=== PATIENT | female | born 1965 | race African-American/Black ===

== ENCOUNTER 2016-10-29 10:23 | Emergency (ER) | payer SELFPAY ==
[2016-10-29] MEDS ORDERED: Ibuprofen 800 MG TAB ONE (11:33)
[2016-10-29] MEDS ORDERED: Penicillin V Potassium 250 MG TAB ONE (11:33)
== END 2016-10-29 11:35 | disposition home or self-care (01) ==
LOC: MADERS 10:23
DX: K02.9 Dental caries, unspecified (principal); K13.79 Other lesions of oral mucosa; F17.210 Nicotine dependence, cigarettes, uncomplicated
CPT/HCPCS: 99283

== ENCOUNTER 2017-01-29 14:06 | Emergency (ER) | payer SELFPAY ==
[2017-01-29] MEDS ORDERED: Sulfameth/Trimethoprim DS 800-160mg TAB ONE (14:24)
== END 2017-01-29 14:30 | disposition home or self-care (01) ==
LOC: MADERS 14:06
DX: L03.313 Cellulitis of chest wall (principal); B35.6 Tinea cruris; I10 Essential (primary) hypertension; F17.210 Nicotine dependence, cigarettes, uncomplicated
CPT/HCPCS: 99282

== ENCOUNTER 2017-01-30 10:42 | Emergency (ER) | payer SELFPAY | END 2017-01-30 11:10 | disposition home or self-care (01) | LOC: MADERS 10:42 | DX: L30.9 Dermatitis, unspecified (principal); I10 Essential (primary) hypertension; F17.210 Nicotine dependence, cigarettes, uncomplicated | CPT/HCPCS: 99282 ==

== ENCOUNTER 2017-08-04 09:17 | Emergency (ER) | payer SELFPAY ==
--- NOTE | 2017-08-04 10:10 | RAD ---
RIGHT ANKLE 3 VIEWS: HISTORY: Trauma, right ankle pain. FINDINGS: The ankle mortise is maintained. No acute fracture or dislocation is seen. POS: [facility]
--- NOTE | 2017-08-04 10:10 | RAD ---
RIGHT FOOT 3 VIEWS: HISTORY: Trauma, right foot pain. FINDINGS: No acute fracture or dislocation is identified. POS: [facility]
== END 2017-08-04 10:25 | disposition home or self-care (01) ==
LOC: MADERS 09:17
DX: S93.411A Sprain of calcaneofibular ligament of right ankle, initial encounter (principal); F17.210 Nicotine dependence, cigarettes, uncomplicated; I10 Essential (primary) hypertension; W17.2XXA Fall into hole, initial encounter

== ENCOUNTER 2017-11-05 03:02 | Emergency (ER) | payer SELFPAY ==
[2017-11-05] MEDS ORDERED: Aspirin 325 MG TAB ONE (03:35)
[2017-11-05 03:51] LABS: #Lymphocytes 2.3 thou/uL (1.20-3.40); #Neutrophils 2.6 thou/uL (1.40-6.50); %Basophils 2.5 % (0.0-1.0); %Lymphocytes 38.6 % (21.0-51.0); %Monocytes 11.9 % (0.0-10.0); Hemoglobin 13.5 g/dL (12.0-16.0); Mean Corpuscular HGB CONC 31.6 g/dL (32.0-36.0); Mean Corpuscular Hemoglobin 29.4 pg (27.0-31.0); Mean Corpuscular Volume 92.9 fl (81.0-99.0); Platelet Count 237 thou/uL (130-400); RBC Distribution Width 14.2 % (11.5-14.5); Red Blood Cell (RBC) Count 4.52 mill/uL (4.20-5.40)
[2017-11-05 04:03] LABS: Alcohol 21 mg/dL (Less than 10); Anion Gap 13 mmol/L (10-20); BUN (Urea Nitrogen) 11 mg/dL (9.8-20.1); Calc. Creatinine Clearance 0 mL/min (70-130); Calcium 8.7 mg/dL (7.8-10.44); Carbon Dioxide 22 mmol/L (22-29); Chloride 112 mmol/L (98-107); Estimated GFR-MDRD 89; Glucose 109 mg/dL (70-105); Potassium 3.9 mmol/L (3.5-5.1); Sodium 143 mmol/L (136-145)
[2017-11-05 04:04] LABS: Acetaminophen Less than 6.0 mcg/mL (10.0-30.0); Alcohol 21 mg/dL (Less than 10); Salicylate Less than 8.0 mg/dL (15.0-30.0)
[2017-11-05 04:06] LABS: Troponin I Less than 0.010 ng/mL (< 0.028)
[2017-11-05] MEDS ORDERED: Lidocaine Viscous Sol 2% 15 ml UD Cup ONE (04:44)
[2017-11-05] MEDS ORDERED: Mag-Al Plus 1200 MG/1200 MG/120 MG/30 ML UDCUP ONE (04:44)
--- NOTE | 2017-11-05 08:25 | RAD ---
PORTABLE CHEST ONE VIEW: Date: 11-05-17 Time: 3:20 a.m. History: Chest pain. FINDINGS: The heart size is normal. The lungs are expanded without focal areas of consolidation, pneumothorax, or pleural effusions. IMPRESSION: No radiographic evidence of acute cardiopulmonary process. POS: [facility]
== END 2017-11-05 04:40 | disposition home or self-care (01) ==
LOC: MADERS 03:02
DX: K21.0 Gastro-esophageal reflux disease with esophagitis (principal); I10 Essential (primary) hypertension; F17.210 Nicotine dependence, cigarettes, uncomplicated
CPT/HCPCS: 36415; 71045; 80048; 80307; 82553; 83880; 84484; 85025; 93005; 94760

== ENCOUNTER 2018-10-01 14:53 | Emergency (ER) | payer SELFPAY | END 2018-10-01 15:35 | disposition home or self-care (01) | LOC: MADERS 14:53 | DX: H69.90 Unspecified Eustachian tube disorder, unspecified ear (principal); J06.9 Acute upper respiratory infection, unspecified; H61.23 Impacted cerumen, bilateral; I10 Essential (primary) hypertension; F17.210 Nicotine dependence, cigarettes, uncomplicated | CPT/HCPCS: 99281 ==

== ENCOUNTER 2019-10-09 11:45 | Emergency (ER) | payer SELFPAY ==
--- NOTE | 2019-10-09 12:25 | RAD ---
PORTABLE CHEST 1 VIEW: DATE: 10/09/2019. TIME: 12:05 PM. HISTORY: Shortness of breath. FINDINGS: Comparison is made with the exam of 11/05/2017. The heart size is normal. No focal areas of consolidation, pneumothoraces, or pleural effusions are seen. IMPRESSION: No acute process. POS: [facility]
[2019-10-09 12:40] LABS: #Basophils 0.2 thou/uL (0.0-0.2); #Lymphocytes 0.8 thou/uL (1.20-3.40); #Monocytes 0.9 thou/uL (0.11-0.59); #Neutrophils 5.7 thou/uL (1.40-6.50); %Basophils 2.1 % (0.0-1.0); %Eosinophils 0.4 % (0.0-10.0); %Lymphocytes 10.4 % (21.0-51.0); %Monocytes 11.8 % (0.0-10.0); %Neutrophils 75.3 % (42.0-75.0); Mean Corpuscular HGB CONC 30.2 g/dL (32.0-36.0); Mean Corpuscular Hemoglobin 27.5 pg (27.0-31.0); Mean Corpuscular Volume 91.3 fL (78.0-98.0); Mean Platelet Volume 9.2 fL (7.4-10.4); Platelet Count 197 thou/uL (130-400); RBC Distribution Width 13.6 % (11.5-14.5); Red Blood Cell (RBC) Count 5.44 mill/uL (4.20-5.40); White Blood Cell (WBC) Count 7.6 thou/uL (4.8-10.8)
[2019-10-09 12:54] LABS: ALT (SGPT) 60 U/L (8-55); AST (SGOT) 60 U/L (5-34); Alkaline Phosphatase 134 U/L (40-110); Anion Gap 15 mmol/L (10-20); BUN (Urea Nitrogen) 7 mg/dL (9.8-20.1); Bilirubin, Total 0.6 mg/dL (0.2-1.2); Calc. Creatinine Clearance 0 mL/min (70-130); Calcium 9.5 mg/dL (7.8-10.44); Carbon Dioxide 22 mmol/L (22-29); Chloride 106 mmol/L (98-107); Estimated GFR-MDRD 76; Globulin 3.6 g/dL (2.4-3.5); Glucose 108 mg/dL (70-105); Potassium 3.6 mmol/L (3.5-5.1); Protein, Total 7.6 g/dL (6.0-8.3); Sodium 139 mmol/L (136-145)
[2019-10-09 12:56] LABS: Magnesium 1.9 mg/dL (1.6-2.6)
--- NOTE | 2019-10-09 13:56 | CT ---
EXAM: CT pulmonary angiogram with IV contrast and 3-D MIP reconstructions PROVIDED CLINICAL HISTORY: Cough and shortness of breath COMPARISON: None FINDINGS: There is no evidence for central or segmental pulmonary embolus. The lungs are free of significant opacity. No pleural fluid or pneumothorax apparent. No evidence for thoracic lymph node enlargement. The airway appears patent and of normal caliber. The visualized portions of the upper abdomen demonstrate no acute findings. The osseous structures demonstrate no concerning lytic or blastic lesions. IMPRESSION: No evidence for central or segmental pulmonary embolus.
--- NOTE | 2019-10-09 13:58 | CT ---
EXAM: CT Abdomen W Con PROVIDED CLINICAL HISTORY: Right-sided abdominal pain COMPARISON: None FINDINGS: The visualized lung bases are free of significant opacity. Renal cortical volume loss is seen involving the superior pole left kidney on a chronic basis. The so lid abdominal organs demonstrate an otherwise unremarkable CT appearance. No bowel dilatation, inflammatory fat stranding, free fluid or free air apparent. Changes of prior cholecystectomy are see n. The osseous structures demonstrate no concerning lytic or blastic lesions. Conspicuous lumbar spine degenerative change. IMPRESSION: No evidence for an acute process.
[2019-10-09] MEDS ORDERED: Dexamethasone 10 MG/ML VIAL ONE (14:21)
[2019-10-09] MEDS ORDERED: Acetaminophen/Codeine 30-300mg Tablet ONE (14:21)
== END 2019-10-09 14:55 | disposition home or self-care (01) ==
LOC: MADERS 11:45
DX: T65.891A Toxic effect of other specified substances, accidental (unintentional), initial encounter (principal); J68.0 Bronchitis and pneumonitis due to chemicals, gases, fumes and vapors; K21.9 Gastro-esophageal reflux disease without esophagitis; F17.210 Nicotine dependence, cigarettes, uncomplicated; I10 Essential (primary) hypertension
CPT/HCPCS: 36415; 71045; 71275; 74160; 80053; 82550; 83735; 83880; 84484; 85025; 87804; 93005; 96374; J1100; J7620

== ENCOUNTER 2020-02-28 17:06 | Emergency (ER) | payer SELFPAY ==
[2020-02-28] MEDS ORDERED: Prochlorperazine 10 MG/2 ML VIAL ONE (18:01)
[2020-02-28] MEDS ORDERED: Ketorolac Tromethamine 30 MG/ML VIAL ONE (18:01)
[2020-02-28] MEDS ORDERED: diphenhydrAMINE 50 MG/ML VIAL ONE (18:01)
[2020-02-28] MEDS ORDERED: Acetaminophen 500 MG TAB ONE (18:01)
[2020-02-28] MEDS ORDERED: Sodium Chloride 0.9% 1,000 ML ONE (18:01)
== END 2020-02-28 19:38 | disposition home or self-care (01) ==
LOC: MADERS 17:06
DX: R51 Headache (principal); I10 Essential (primary) hypertension; F17.210 Nicotine dependence, cigarettes, uncomplicated; K21.9 Gastro-esophageal reflux disease without esophagitis
CPT/HCPCS: 96365; 96374; 96375; J0780; J1200; J1885; J7050

== ENCOUNTER 2021-01-04 12:23 | Outpatient (CLI) | payer OTHER | END 2021-01-04 12:24 | disposition home or self-care (01) | LOC: MADLAB 12:23 | PROVIDERS: ATTEND Family Medicine | DX: R05 Cough (principal) | CPT/HCPCS: 71046 ==

== ENCOUNTER 2021-03-02 15:49 | Outpatient (CLI) | payer OTHER | END 2021-03-02 15:50 | disposition home or self-care (01) | LOC: MADRAD 15:49 | PROVIDERS: ATTEND Family Medicine | DX: M25.562 Pain in left knee (principal); M54.41 Lumbago with sciatica, right side; M54.42 Lumbago with sciatica, left side; M47.816 Spondylosis without myelopathy or radiculopathy, lumbar region; M41.9 Scoliosis, unspecified; Q76.49 Other congenital malformations of spine, not associated with scoliosis; M85.662 Other cyst of bone, left lower leg | CPT/HCPCS: 72100 ==

== ENCOUNTER 2021-09-10 07:11 | Emergency (ER) | payer OTHER, SELFPAY ==
[2021-09-10 07:49] LABS: Bilirubin Negative (Negative); Blood, Urine Small (Negative); Clarity Clear (Clear); Glucose, Urine (Dipstick) Negative (Negative); Ketone, Urine Negative (Negative); Leukocyte Trace (Negative); Nitrite Negative (Negative); Protein, Urine (Dipstick) Negative (Neg-Trace); Specific Gravity, Urine 1.025 (1.005-1.030); Urobilinogen 0.2 mg/dL (Less than 2); pH, Urine 5.5 (5.0-9.0)
[2021-09-10 07:59] LABS: Bacteria/HPF Rare-Few HPF (None Seen); RBC/HPF 0-3 HPF (0-3); WBC/HPF 0-3 HPF (0-3)
[2021-09-10] MEDS ORDERED: Sodium Chloride 0.9% 500 ML ONE (07:59)
[2021-09-10] MEDS ORDERED: Morphine 4 MG/ML VIAL ONE (07:59)
[2021-09-10] MEDS ORDERED: Ondansetron PF 4 MG/2 ML Vial ONE ×2 (07:59→09:15)
[2021-09-10 08:16] LABS: Hemoglobin 16.3 g/dL (12.0-16.0); Manual Diff?? YES; Mean Corpuscular Hemoglobin 28.6 pg (27.0-31.0); Mean Corpuscular Volume 92.2 fL (78.0-98.0); Mean Platelet Volume 9.6 fL (7.4-10.4); Platelet Count 249 thou/uL (130-400); RBC Distribution Width 13.4 % (11.5-14.5); Red Blood Cell (RBC) Count 5.67 mill/uL (4.20-5.40); White Blood Cell (WBC) Count 6.4 thou/uL (4.8-10.8)
[2021-09-10 08:17] LABS: ALT (SGPT) 29 U/L (8-55); AST (SGOT) 16 U/L (5-34); Albumin 3.9 g/dL (3.5-5.0); Alkaline Phosphatase 139 U/L (40-110); Anion Gap 13 mmol/L (10-20); Anisocytosis SLIGHT = 6-15 cells (100X) (0-5/hpf); BUN (Urea Nitrogen) 8 mg/dL (9.8-20.1); Band 3 % (5-11); Bilirubin, Total 0.6 mg/dL (0.2-1.2); Calc. Creatinine Clearance 0 mL/min (70-130); Calcium 9.3 mg/dL (7.8-10.44); Carbon Dioxide 24 mmol/L (22-29); Chloride 108 mmol/L (98-107); Eosinophils 1 % (0-10); Globulin 3.3 g/dL (2.4-3.5); Glucose 190 mg/dL (70-105); Lipase 25 U/L (8-78); Lymphocytes 49 % (21-51); MDiff Complete? YES; Magnesium 1.9 mg/dL (1.6-2.6); Monocytes 8 % (0-10); Neutrophil 39 % (42-75); Platelet Morphology Comment Appears Adequate; Potassium 3.5 mmol/L (3.5-5.1); Protein, Total 7.2 g/dL (6.0-8.3); Sodium 141 mmol/L (136-145)
[2021-09-10] MEDS ORDERED: Iopamidol 370 76% 100 ML VIAL ONE (08:40)
[2021-09-10] MEDS ORDERED: Ketorolac Tromethamine 30 MG/ML VIAL ONE (09:15)
== END 2021-09-10 10:02 | disposition home or self-care (01) ==
LOC: MADERS 07:11
DX: N23 Unspecified renal colic (principal); I10 Essential (primary) hypertension; K21.9 Gastro-esophageal reflux disease without esophagitis; F17.210 Nicotine dependence, cigarettes, uncomplicated; F17.220 Nicotine dependence, chewing tobacco, uncomplicated
CPT/HCPCS: 74177; 80053; 81003; 81015; 83690; 83735; 85025; 96374; 96375; 96376; J1885; J2270; J2405; J7030; Q9967

== ENCOUNTER 2021-10-29 09:45 | Emergency (ER) | payer SELFPAY ==
[2021-10-29] MEDS ORDERED: Boostrix 0.5 ML (Tdap) VIAL ONE (10:13)
[2021-10-29] MEDS ORDERED: Ibuprofen 800 MG TAB ONE (10:13)
== END 2021-10-29 10:50 | disposition home or self-care (01) ==
LOC: MADERS 09:45
DX: S91.132A Puncture wound without foreign body of left great toe without damage to nail, initial encounter (principal); I10 Essential (primary) hypertension; K21.9 Gastro-esophageal reflux disease without esophagitis; F17.210 Nicotine dependence, cigarettes, uncomplicated; F17.290 Nicotine dependence, other tobacco product, uncomplicated; Z23 Encounter for immunization; Z79.82 Long term (current) use of aspirin; W26.8XXA Contact with other sharp object(s), not elsewhere classified, initial encounter; Y92.009 Unspecified place in unspecified non-institutional (private) residence as the place of occurrence of the external cause
CPT/HCPCS: 90471; 90715

== ENCOUNTER 2022-02-12 14:09 | Emergency (ER) | payer BC | END 2022-02-12 16:20 | disposition home or self-care (01) | LOC: MADERS 14:09 | DX: M25.562 Pain in left knee (principal); K21.9 Gastro-esophageal reflux disease without esophagitis; I10 Essential (primary) hypertension; F17.210 Nicotine dependence, cigarettes, uncomplicated ==

== ENCOUNTER 2023-04-05 07:15 | Emergency (ER) | payer BC, OTHER, SELFPAY ==
[2023-04-05] MEDS ORDERED: Ketorolac Tromethamine 30 MG/ML VIAL ONE (07:41)
[2023-04-05 07:46] LABS: Bilirubin Negative (Negative); Blood, Urine Large (Negative); CAUTI Indications for Culture Pelvic or flank pain; Clarity Slightly Cloudy (Clear); Glucose, Urine (Dipstick) Negative (Negative); Ketone, Urine Negative (Negative); Leukocyte Large (Negative); Nitrite Negative (Negative); Protein, Urine (Dipstick) Negative (Neg-Trace); Urobilinogen 0.2 mg/dL (Less than 2); pH, Urine 5.5 (5.0-9.0)
[2023-04-05 07:53] LABS: RBC/HPF Greater than 50 HPF (0-3); WBC/HPF Greater Than 50 HPF (0-3)
[2023-04-05 07:54] LABS: Bacteria/HPF 4+ HPF (None Seen)
[2023-04-05] MEDS ORDERED: Sodium Chloride 0.9% 1,000 ML ONE (08:04)
[2023-04-05] MEDS ORDERED: cefTRIAXone (ROCEPHIN) 2 GM VIAL ONE (08:13)
[2023-04-05] MEDS ORDERED: Sodium Chloride 0.9% 100 ML ONE (08:13)
[2023-04-05 08:28] LABS: ALT (SGPT) 26 U/L (8-55); AST (SGOT) 16 U/L (5-34); Albumin 3.8 g/dL (3.5-5.0); Alkaline Phosphatase 148 U/L (40-110); Anion Gap 11 mmol/L (10-20); BUN (Urea Nitrogen) 8 mg/dL (9.8-20.1); Band 1 % (5-11); Bilirubin, Total 0.5 mg/dL (0.2-1.2); Calc. Creatinine Clearance 0 mL/min (70-130); Calcium 9.4 mg/dL (7.8-10.44); Carbon Dioxide 22 mmol/L (22-29); Chloride 111 mmol/L (98-107); Estimated GFR 82; Globulin 3.1 g/dL (2.4-3.5); Glucose 135 mg/dL (70-105); Hematocrit 48.4 % (36.0-47.0); Hemoglobin 15.9 g/dL (12.0-16.0); Lymphocytes 50 % (21-51); MDiff Complete? YES; Mean Corpuscular HGB CONC 32.8 g/dL (32.0-36.0); Mean Corpuscular Hemoglobin 29.9 pg (27.0-31.0); Mean Corpuscular Volume 91.1 fl (78.0-98.0); Mean Platelet Volume 10.7 fL (7.4-10.4); Monocytes 6 % (0-10); Neutrophil 36 % (42-75); Platelet Adequacy Comment Appears Adequate; Platelet Count 233 10x3/uL (130-400); Potassium 3.9 mmol/L (3.5-5.1); Protein, Total 6.9 g/dL (6.0-8.3); RBC Distribution Width 14.5 % (11.5-14.5); Reactive Lymphocytes 6 % (0-10); Red Blood Cell (RBC) Count 5.31 mill/uL (4.20-5.40); Sodium 140 mmol/L (136-145); White Blood Cell (WBC) Count 6.2 10x3/uL (4.8-10.8)
== END 2023-04-05 09:52 | disposition home or self-care (01) ==
LOC: MADERS 07:15
DX: N10 Acute pyelonephritis (principal); K21.9 Gastro-esophageal reflux disease without esophagitis; I10 Essential (primary) hypertension; F17.210 Nicotine dependence, cigarettes, uncomplicated
CPT/HCPCS: 74176; 80053; 81001; 83605; 85025; 87077; 87086; 87186; 96365; 96375; J0696; J1885; J3490; J7050

== ENCOUNTER 2025-07-01 01:43 | Emergency (ER) | payer OTHER ==
[2025-07-01 02:55] LABS: Hematocrit 54.1 % (36.0-47.0); Hemoglobin 16.0 g/dL (12.0-16.0); MDiff Complete? YES; Mean Corpuscular Hemoglobin 28.0 pg (27.0-31.0); Mean Corpuscular Volume 94.6 fl (78.0-98.0); Platelet Count 244 10x3/uL (130-400); Red Blood Cell (RBC) Count 5.72 mill/uL (4.20-5.40); White Blood Cell (WBC) Count 6.8 10x3/uL (4.8-10.8)
[2025-07-01] MEDS ORDERED: Prochlorperazine 10 MG/2 ML VIAL ONE (02:58)
[2025-07-01 03:09] LABS: ALT (SGPT) 17 U/L (Less than 34); AST (SGOT) 15 U/L (11-34); Albumin 3.6 g/dL (3.1-4.5); Alkaline Phosphatase 137 U/L (40-110); Anion Gap 14 mmol/L (10-20); BUN (Urea Nitrogen) 13 mg/dL (9.8-20.1); Bilirubin, Total 0.4 mg/dL (0.3-1.2); Calc. Creatinine Clearance 0 mL/min (70-130); Calcium 9.2 mg/dL (7.8-10.44); Carbon Dioxide 23 mmol/L (23-31); Chloride 107 mmol/L (98-107); Globulin 3.2 g/dL (2.4-3.5); Glucose 132 mg/dL (80-115); Potassium 3.7 mmol/L (3.5-5.1); Sodium 140 mmol/L (136-145)
[2025-07-01 07:17] LABS: Troponin I 0.015 ng/mL (< 0.028)
[2025-07-01] MEDS ORDERED: Ketorolac Tromethamine 30 MG (1 mL) VIAL ONE (07:30)
== END 2025-07-01 08:55 | disposition home or self-care (01) ==
LOC: MADERS 01:43
DX: G44.209 Tension-type headache, unspecified, not intractable (principal); I10 Essential (primary) hypertension; F17.210 Nicotine dependence, cigarettes, uncomplicated; Z71.6 Tobacco abuse counseling; Z55.6 Problems related to health literacy
CPT/HCPCS: 70450; 70496; 70498; 80053; 84484; 85025; 93005; 96365; 96375; 99406; J0780; J1885; J2270; J7120

== ENCOUNTER 2025-07-29 06:27 | Emergency (ER) | payer OTHER ==
[2025-07-29 07:06] LABS: Glucose, Urine (Dipstick) Negative (Negative); Leukocyte Negative (Negative); Protein, Urine (Dipstick) Negative (Neg-Trace); Specific Gravity, Urine 1.015 (1.005-1.030)
[2025-07-29 07:15] LABS: CAUTI Indications for Culture Pelvic or flank pain; RBC/HPF 0-3 HPF (0-3); WBC/HPF 0-3 HPF (0-3)
[2025-07-29 07:16] LABS: Bacteria/HPF Rare-Few HPF (None Seen); Urine Culture Reflex No No
[2025-07-29] MEDS ORDERED: Ketorolac Tromethamine 30 MG (1 mL) VIAL ONE (07:23)
[2025-07-29 07:24] LABS: Hematocrit 49.1 % (36.0-47.0); Hemoglobin 15.3 g/dL (12.0-16.0); Mean Corpuscular Hemoglobin 28.5 pg (27.0-31.0); Mean Corpuscular Volume 91.7 fl (78.0-98.0); Platelet Count 247 10x3/uL (130-400); Red Blood Cell (RBC) Count 5.36 mill/uL (4.20-5.40); White Blood Cell (WBC) Count 6.3 10x3/uL (4.8-10.8)
[2025-07-29 07:31] LABS: ALT (SGPT) 19 U/L (Less than 34); AST (SGOT) 19 U/L (11-34); Albumin 3.8 g/dL (3.1-4.5); Alkaline Phosphatase 157 U/L (40-110); Anion Gap 14 mmol/L (10-20); BUN (Urea Nitrogen) 9 mg/dL (9.8-20.1); Bilirubin, Total 0.3 mg/dL (0.3-1.2); Calc. Creatinine Clearance 0 mL/min (70-130); Calcium 9.5 mg/dL (7.8-10.44); Carbon Dioxide 24 mmol/L (23-31); Chloride 107 mmol/L (98-107); Globulin 3.5 g/dL (2.4-3.5); Glucose 162 mg/dL (80-115); Lipase 98 U/L (8-78); Potassium 4.5 mmol/L (3.5-5.1); Sodium 140 mmol/L (136-145)
[2025-07-29 07:34] LABS: Manual Diff?? YES
[2025-07-29 07:36] LABS: MDiff Complete? YES
[2025-07-29 07:38] LABS: Platelet Adequacy Comment Appears Adequate
[2025-07-29] MEDS ORDERED: Orphenadrine Citrate 60 MG/2 ML VIAL ONE (08:59)
== END 2025-07-29 09:55 | disposition home or self-care (01) ==
LOC: MADERS 06:27
DX: T14.8XXA Other injury of unspecified body region, initial encounter (principal); J20.9 Acute bronchitis, unspecified; J01.90 Acute sinusitis, unspecified; E86.0 Dehydration; I10 Essential (primary) hypertension; F17.210 Nicotine dependence, cigarettes, uncomplicated
CPT/HCPCS: 74177; 80053; 81001; 83690; 85025; 87081; 87428; 87430; 96374; 96375; J1885; J2360; J2919